=== PATIENT | female | born 1970 | race African-American/Black ===

== ENCOUNTER 2022-04-23 22:23 | Emergency (ER) | payer MEDICAID ==
[~2022-04-23] VITALS: Ht 162.6 cm; Wt 91.0 kg
[2022-04-23 22:27] VITALS: BP 125/69
[2022-04-23] MEDS ORDERED: ONDANSETRON 4MG ODT PO STA (23:44)
[2022-04-23] MEDS ORDERED: MAGNESIUM/ALUMINUM HYDROXIDE/SIMETHICONE 30ML UDC PO STA (23:44)
[2022-04-24 00:29] LABS: BASOPHILS % 0.5 % (0.0-2.0); EOSINOPHILS % 1.4 % (0.0-5.0); HEMATOCRIT. 45.4 % (36.0-48.0); HEMOGLOBIN. 14.8 g/dL (12.0-16.0); LYMPHOCYTES % 42.6 % (20.0-50.0); MEAN CORPUSCULAR HEMOGLOBIN 26.2 pg (28.0-32.0); MEAN CORPUSCULAR VOLUME 80.2 fL (81.0-99.0); MEAN PLATELET VOLUME 7.5 fl (7.4-10.4); MONOCYTES % 8.9 % (2.0-8.0); NEUTROPHILS % 46.6 % (40.0-76.0); PLATELET 315 x1000/uL (130-400); RED BLOOD CELL COUNT 5.66 mill/uL (4.2-5.4); RED CELL DISTRIBUTION WIDTH 16.7 % (11.6-14.6)
[2022-04-24 00:33] LABS: CHLORIDE 100 mEq/L (98-107)
[2022-04-24 04:50] LABS: CLARITY URINE TURBID (CLEAR); COLOR URINE ORANGE (YELLOW); KETONES URINE 2+ (NEGATIVE); LEUKOCYTE ESTERASE URINE 1+ (NEGATIVE); NITRITE URINE POSITIVE (NEGATIVE); OCCULT BLOOD URINE 3+ (NEGATIVE); PH URINE 5.5 (4.5-8.0); PROTEIN URINE 2+ (NEGATIVE); SPECIFIC GRAVITY URINE 1.038 (1.005-1.030)
[2022-04-24 05:39] LABS: *AMPHETAMINES SCREEN URINE NEGATIVE (NEGATIVE); *BARBITURATES SCREEN URINE NEGATIVE (NEGATIVE); *BENZODIAZEPINES SCREEN URINE NEGATIVE (NEGATIVE); *COCAINE SCREEN URINE NEGATIVE (NEGATIVE); CANNABINOID URINE SCREEN PRESUMTIVE POSITIVE (NEGATIVE); METHADONE URINE SCREEN NEGATIVE (NEGATIVE); OPIATES URINE SCREEN NEGATIVE (NEGATIVE); PHENCYCLIDINE URINE SCREEN NEGATIVE (NEGATIVE)
[2022-04-24] MEDS ORDERED: ONDA4TAB11 PO (06:05)
[2022-04-24] MEDS ORDERED: NITR-87 MT (06:06)
== END 2022-04-24 06:00 | disposition left against medical advice (07) ==
LOC: ER 22:23
DX: R10.9 Unspecified abdominal pain (principal); F17.210 Nicotine dependence, cigarettes, uncomplicated; Z88.6 Allergy status to analgesic agent; Z85.43 Personal history of malignant neoplasm of ovary
CPT/HCPCS: 36415; 74176; 80053; 80305; 81001; 83605; 83690; 84484; 85025; 93005; 99284; Q0162

== ENCOUNTER 2022-04-24 20:32 | Emergency (ER) | payer MEDICAID ==
[~2022-04-24] VITALS: Ht 167.6 cm; Wt 96.0 kg
[~2022-04-24 20:32] MED LIST: NITR-87 MT; ONDA4TAB11 PO
[2022-04-25 01:39] LABS: BASOPHILS % 0.7 % (0.0-2.0); EOSINOPHILS % 1.8 % (0.0-5.0); HEMATOCRIT. 43.9 % (36.0-48.0); HEMOGLOBIN. 14.3 g/dL (12.0-16.0); LYMPHOCYTES % 46.5 % (20.0-50.0); MEAN CORPUSCULAR HEMOGLOBIN 26.1 pg (28.0-32.0); MEAN PLATELET VOLUME 7.5 fl (7.4-10.4); PLATELET 306 x1000/uL (130-400); RED BLOOD CELL COUNT 5.49 mill/uL (4.2-5.4); RED CELL DISTRIBUTION WIDTH 16.6 % (11.6-14.6)
[2022-04-25] MEDS ORDERED: LORAZEPAM 0.5MG TABLET PO ONE (01:45)
[2022-04-25 01:47] LABS: CHLORIDE 101 mEq/L (98-107)
[2022-04-25 01:54] LABS: ETHANOL BLOOD < 10 mg/dL
[2022-04-25 05:57] LABS: CLARITY URINE CLEAR (CLEAR); COLOR URINE YELLOW (YELLOW); KETONES URINE NEGATIVE (NEGATIVE); LEUKOCYTE ESTERASE URINE TRACE (NEGATIVE); NITRITE URINE NEGATIVE (NEGATIVE); OCCULT BLOOD URINE 3+ (NEGATIVE); PROTEIN URINE NEGATIVE (NEGATIVE); SPECIFIC GRAVITY URINE 1.015 (1.005-1.030)
[2022-04-25 06:12] LABS: *AMPHETAMINES SCREEN URINE NEGATIVE (NEGATIVE); *BARBITURATES SCREEN URINE NEGATIVE (NEGATIVE); *BENZODIAZEPINES SCREEN URINE NEGATIVE (NEGATIVE); *COCAINE SCREEN URINE NEGATIVE (NEGATIVE); CANNABINOID URINE SCREEN PRESUMTIVE POSITIVE (NEGATIVE); METHADONE URINE SCREEN NEGATIVE (NEGATIVE); OPIATES URINE SCREEN NEGATIVE (NEGATIVE); PHENCYCLIDINE URINE SCREEN NEGATIVE (NEGATIVE)
[2022-04-25] MEDS: BUPROPION HCL 150MG TABLET XL 24HR PO SCH (11:35)
[2022-04-25] MEDS ORDERED: NICOTINE 7MG PATCH TD ONE (14:45)
[2022-04-25] MEDS ORDERED: MAGNESIUM/ALUMINUM HYDROXIDE/SIMETHICONE 30ML UDC PO STA (19:56)
[2022-04-26] MEDS ORDERED: LORAZEPAM 1MG TABLET PO ONE (03:00)
[2022-04-26] MEDS ORDERED: HALOPERIDOL LACTATE 5MG/ML VIAL IM ONE (08:15)
[2022-04-26] MEDS ORDERED: MIDAZOLAM HCL 2 MG/2 ML VIAL IM ONE (08:15)
[2022-04-26] MEDS: BUPROPION HCL 150MG TABLET XL 24HR PO SCH (09:00)
[2022-04-26] MEDS ORDERED: ARIPIPRAZOLE 5MG TABLET PO SCH (09:00)
[2022-04-26] MEDS ORDERED: LORAZEPAM 1MG TABLET PO NR (15:15)
[2022-04-27] MEDS: BUPROPION HCL 150MG TABLET XL 24HR PO SCH (10:21)
[2022-04-27] MEDS ORDERED: NICOTINE 7MG PATCH TD ONE (16:30)
[2022-04-27 19:53] VITALS: BP 125/69
[2022-04-27] MEDS ORDERED: TRAZODONE HCL 50MG TABLET PO SCH (21:00)
== END 2022-04-27 20:33 | disposition short-term general hospital (02) ==
LOC: ER 20:32
DX: R45.851 Suicidal ideations (principal); F20.9 Schizophrenia, unspecified; F43.10 Post-traumatic stress disorder, unspecified; Z88.6 Allergy status to analgesic agent; Z20.822 Contact with and (suspected) exposure to COVID-19; Z98.890 Other specified postprocedural states
CPT/HCPCS: 36415; 80053; 80305; 80307; 80320; 80329; 81001; 85025; 99285; C9803; J1630; J2250; U0003; U0005; G0480

== ENCOUNTER 2022-09-19 16:55 | Emergency (ER) | payer MEDICAID ==
[~2022-09-19] VITALS: Ht 172.7 cm; Wt 89.0 kg
[2022-09-19 19:03] LABS: BASOPHILS % 0.7 % (0.0-2.0); EOSINOPHILS % 1.2 % (0.0-5.0); HEMATOCRIT. 40.9 % (36.0-48.0); HEMOGLOBIN. 14.2 g/dL (12.0-16.0); LYMPHOCYTES % 25.9 % (20.0-50.0); MEAN CORPUSCULAR HEMOGLOBIN 27.4 pg (28.0-32.0); MEAN CORPUSCULAR VOLUME 79.2 fL (81.0-99.0); MEAN PLATELET VOLUME 7.3 fl (7.4-10.4); MONOCYTES % 7.5 % (2.0-8.0); NEUTROPHILS % 64.7 % (40.0-76.0); PLATELET 344 x1000/uL (130-400); RED BLOOD CELL COUNT 5.16 mill/uL (4.2-5.4); RED CELL DISTRIBUTION WIDTH 15.8 % (11.6-14.6)
[2022-09-19 19:10] LABS: CHLORIDE 103 mEq/L (98-107)
[2022-09-19 19:33] LABS: ETHANOL BLOOD < 10 mg/dL
[2022-09-20 05:17] LABS: CLARITY URINE CLEAR (CLEAR); COLOR URINE YELLOW (YELLOW); KETONES URINE 2+ (NEGATIVE); LEUKOCYTE ESTERASE URINE NEGATIVE (NEGATIVE); NITRITE URINE NEGATIVE (NEGATIVE); OCCULT BLOOD URINE NEGATIVE (NEGATIVE); PH URINE 5.5 (4.5-8.0); PROTEIN URINE TRACE (NEGATIVE); SPECIFIC GRAVITY URINE 1.022 (1.005-1.030)
[2022-09-20 05:39] LABS: *AMPHETAMINES SCREEN URINE PRESUMTIVE POSITIVE (NEGATIVE); *BARBITURATES SCREEN URINE NEGATIVE (NEGATIVE); *BENZODIAZEPINES SCREEN URINE NEGATIVE (NEGATIVE); *COCAINE SCREEN URINE NEGATIVE (NEGATIVE); CANNABINOID URINE SCREEN PRESUMTIVE POSITIVE (NEGATIVE); METHADONE URINE SCREEN NEGATIVE (NEGATIVE); OPIATES URINE SCREEN NEGATIVE (NEGATIVE); PHENCYCLIDINE URINE SCREEN NEGATIVE (NEGATIVE)
[2022-09-20] MEDS: OLANZAPINE 5MG TABLET PO SCH ×2 (11:08→21:45)
[2022-09-21] MEDS: OLANZAPINE 5MG TABLET PO SCH (08:08)
[2022-09-21 10:48] VITALS: BP 102/50
== END 2022-09-21 15:55 | disposition short-term general hospital (02) ==
LOC: ER 16:55
DX: F20.9 Schizophrenia, unspecified (principal); F15.10 Other stimulant abuse, uncomplicated; F16.10 Hallucinogen abuse, uncomplicated; F12.10 Cannabis abuse, uncomplicated; Z20.822 Contact with and (suspected) exposure to COVID-19; Z75.1 Person awaiting admission to adequate facility elsewhere; Z88.6 Allergy status to analgesic agent
CPT/HCPCS: 36415; 80053; 80307; 80320; 80329; 85025; 99285; G0480